=== PATIENT | male | born 1995 | race Caucasian/White ===

== ENCOUNTER 2016-08-30 10:37 | Inpatient (IN) | payer BC ==
[~2016-08-30] VITALS: Ht 190.5 cm; Wt 102.5 kg
[~2016-08-30 10:37] MED LIST: CEPHALEXIN500 M1 PO; NEXIUM 40MG40 MG PO; NO HOME MEDICATIONS; NORCO 325 MG-51 TAB PO; PERCOCET 325 MG1 TA2 PO; ZOFRAN ODT4 MG PO
[2016-08-30 11:30] LABS: BASO % 0.5 % (0.0-2.0); EOS # 0.1 (0.0-0.7); EOS % 0.7 % (0-4.0); GRAN # 5.5 (1.4-6.5); GRAN % 65.8 % (42.2-75.2); HEMATOCRIT 44.7 % (42.0-52.0); HEMOGLOBIN 15.5 g/dl (13.5-18.0); LYMPH # 2.1 (1.2-3.4); LYMPH % 25.7 % (20.0-51.0); MEAN CELL VOLUME 85 fl (80.0-100.0); MEAN CORPUSCULAR HEMOGLOBIN 30 pg (27.0-31.0); MEAN CORPUSCULAR HGB CONC 35 g/dl (33.0-37.0); MEAN PLATELET VOLUME 9.4 fl (7.4-10.4); MONO # 0.6 (0.1-0.6); MONO % 7.2 % (1.7-9.3); PLATELET COUNT 216 K/mm3 (130-400); RED BLOOD COUNT 5.24 M/mm3 (4.20-5.60); REDCELL DISTRIBUTION WIDTH-CV 12.1 % (11.5-14.5); WHITE BLOOD COUNT 8.3 K/mm3 (4.8-10.8)
[2016-08-30 11:35] LABS: PH 5 (5-8); SQUAMOUS EPITHELIAL None Seen /hpf; URINE APPEARANCE Clear; URINE BACTERIA None Seen /hpf; URINE BILIRUBIN Negative (NEGATIVE); URINE BLOOD Negative (NEGATIVE); URINE COLOR Yellow; URINE GLUCOSE Negative (NEGATIVE); URINE KETONE Negative (NEGATIVE); URINE RBC 0-2 /hpf; URINE UROBILINOGEN Negative (NEGATIVE); URINE WBC 0-2 /hpf
[2016-08-30 11:41] LABS: ADJUSTED CALCIUM 9.2 mg/dL (8.4-10.2); ALANINE AMINOTRANSFERASE 53 U/L (21-72); ALBUMIN 4.3 gm/dL (3.5-5.0); ALKALINE PHOSPHATASE 43 U/L (50-136); ANION GAP 11 mmol/L (7-16); BILIRUBIN,TOTAL 1.1 mg/dL (0.0-1.0); BLOOD UREA NITROGEN 15 mg/dL (9-20); CALCIUM 9.4 mg/dL (8.4-10.2); CARBON DIOXIDE 27 mmol/L (22-30); CHLORIDE 102 mmol/L (98-107); GLUCOSE 88 mg/dL (74-106); SODIUM 139 mmol/L (137-145); TOTAL PROTEIN 7.2 gm/dL (6.4-8.2)
[2016-08-30 12:33] LABS: LIPASE 12774 U/L (23-300)
[2016-08-30 13:38] VITALS: BP 117/71; PULSE 54; TEMP 97.1
[2016-08-30 17:35] VITALS: BP 121/62; PULSE 64; TEMP 98.2
[2016-08-30 20:11] VITALS: BP 129/67; PULSE 81; TEMP 98.5
[2016-08-31 01:50] VITALS: BP 116/56; PULSE 69; TEMP 98.4
[2016-08-31 05:05] VITALS: BP 113/52; PULSE 64; TEMP 98.6
[2016-08-31 09:00] VITALS: BP 121/68; PULSE 80; TEMP 98.2
[2016-08-31 10:32] LABS: CALCIUM 9.1 mg/dL (8.4-10.2); CREATININE, serum 0.92 mg/dL (0.66-1.25)
== END 2016-08-31 15:00 | disposition home or self-care (01) | DRG 440 ==
LOC: COL.ER 10:37 → SURG 12:51
PROVIDERS: Nurse Practitioner; Nurse Practitioner Family
DX: K85.90 Acute pancreatitis without necrosis or infection, unspecified (principal); K86.1 Other chronic pancreatitis
CPT/HCPCS: 99222-AI; 99238; J1170; J2270; J2405; J3010; J7030

== ENCOUNTER → 2016-10-11 | Outpatient (CLI) | payer BC | LOC: COL.RAD 07:16 | DX: K86.89 Other specified diseases of pancreas (principal) | CPT/HCPCS: A9585 ==

== ENCOUNTER 2016-12-20 06:55 | Inpatient (IN) | payer BC ==
[~2016-12-20] VITALS: Ht 190.5 cm; Wt 115.7 kg
[2016-12-20 07:28] LABS: BASO % 0.4 % (0.0-2.0); EOS # 0.1 (0.0-0.7); EOS % 0.7 % (0-4.0); GRAN # 7.2 (1.4-6.5); GRAN % 73.6 % (42.2-75.2); HEMATOCRIT 48.6 % (42.0-52.0); HEMOGLOBIN 16.7 g/dl (13.5-18.0); LYMPH # 1.7 (1.2-3.4); MEAN CELL VOLUME 85 fl (80.0-100.0); MEAN CORPUSCULAR HEMOGLOBIN 29 pg (27.0-31.0); MEAN CORPUSCULAR HGB CONC 34 g/dl (33.0-37.0); MEAN PLATELET VOLUME 9.3 fl (7.4-10.4); MONO # 0.8 (0.1-0.6); MONO % 8.1 % (1.7-9.3); PLATELET COUNT 223 K/mm3 (130-400); RED BLOOD COUNT 5.71 M/mm3 (4.20-5.60); REDCELL DISTRIBUTION WIDTH-CV 12.2 % (11.5-14.5); WHITE BLOOD COUNT 9.7 K/mm3 (4.8-10.8)
[2016-12-20 07:45] LABS: ADJUSTED CALCIUM 9.1 mg/dL (8.4-10.2); ALBUMIN 4.5 gm/dL (3.5-5.0); BILIRUBIN,TOTAL 0.6 mg/dL (0.0-1.0); C-REACTIVE PROTEIN 0.6 mg/dL (0.0-0.9); CALCIUM 9.5 mg/dL (8.4-10.2); CREATININE, serum 0.88 mg/dL (0.66-1.25); POTASSIUM 4.5 mmol/L (3.4-5.0); TOTAL PROTEIN 7.4 gm/dL (6.4-8.2)
[2016-12-20 08:03] LABS: PH 5 (5-8); SQUAMOUS EPITHELIAL 0-2 /hpf; URINE APPEARANCE Clear; URINE BACTERIA None Seen /hpf; URINE BILIRUBIN Negative (NEGATIVE); URINE BLOOD Negative (NEGATIVE); URINE COLOR Yellow; URINE GLUCOSE Negative (NEGATIVE); URINE KETONE Negative (NEGATIVE); URINE RBC 0-2 /hpf; URINE UROBILINOGEN Negative (NEGATIVE); URINE WBC 0-2 /hpf
[2016-12-20 10:50] VITALS: BP 135/75; PULSE 55; TEMP 98.8
[2016-12-20 11:13] VITALS: BP 125/72; PULSE 55; TEMP 98.1
[2016-12-20 15:26] VITALS: BP 118/64; PULSE 64; TEMP 98.5
[2016-12-20 20:04] VITALS: BP 130/59; PULSE 62; TEMP 98.6
[2016-12-20 23:21] VITALS: BP 113/61; PULSE 51; TEMP 98.7
[2016-12-21 02:16] VITALS: BP 103/58; PULSE 62; TEMP 98.5
[2016-12-21 07:39] VITALS: BP 109/59; PULSE 57; TEMP 98.4
[2016-12-21 07:46] LABS: BASO % 0.5 % (0.0-2.0); EOS # 0.1 (0.0-0.7); EOS % 1.2 % (0-4.0); GRAN # 3.9 (1.4-6.5); HEMATOCRIT 43.5 % (42.0-52.0); HEMOGLOBIN 14.8 g/dl (13.5-18.0); LYMPH # 1.5 (1.2-3.4); LYMPH % 24.3 % (20.0-51.0); MEAN CELL VOLUME 87 fl (80.0-100.0); MEAN CORPUSCULAR HEMOGLOBIN 30 pg (27.0-31.0); MEAN CORPUSCULAR HGB CONC 34 g/dl (33.0-37.0); MEAN PLATELET VOLUME 9.5 fl (7.4-10.4); MONO # 0.5 (0.1-0.6); MONO % 8.7 % (1.7-9.3); PLATELET COUNT 194 K/mm3 (130-400); RED BLOOD COUNT 5.01 M/mm3 (4.20-5.60); REDCELL DISTRIBUTION WIDTH-CV 12.1 % (11.5-14.5)
[2016-12-21 07:59] LABS: CALCIUM 8.9 mg/dL (8.4-10.2); CREATININE, serum 0.91 mg/dL (0.66-1.25)
[2016-12-21 11:13] VITALS: BP 105/61; PULSE 59; TEMP 98.4
[2016-12-21 16:28] VITALS: BP 115/63; PULSE 60; TEMP 98.1
[2016-12-21 19:48] VITALS: BP 119/61; PULSE 62; TEMP 98.2
[2016-12-21 23:28] VITALS: BP 119/66; PULSE 52; TEMP 98
[2016-12-22 03:46] VITALS: BP 104/66; PULSE 59; TEMP 97.7
[2016-12-22 07:45] VITALS: BP 117/71; PULSE 52; TEMP 98.4
[2016-12-22 12:03] VITALS: BP 123/67; PULSE 53; TEMP 98.5
[2016-12-22 15:07] VITALS: BP 104/53; PULSE 57; TEMP 98.4
[2016-12-22 20:10] VITALS: BP 121/74; PULSE 62; TEMP 98
[2016-12-23 00:48] VITALS: BP 107/60; PULSE 56; TEMP 97.8
[2016-12-23 04:32] VITALS: BP 109/59; PULSE 46; TEMP 97.5
[2016-12-23] MEDS ORDERED: NORCO 325 MG-51 TAB PO (08:01)
[2016-12-23 08:05] VITALS: BP 121/66; PULSE 47; TEMP 98.4
== END 2016-12-23 09:31 | disposition home or self-care (01) | DRG 439 ==
LOC: COL.ER 06:55 → MEDICAL 08:50
PROVIDERS: Nurse Practitioner; Physician Assistant
DX: K85.90 Acute pancreatitis without necrosis or infection, unspecified (principal); E87.1 Hypo-osmolality and hyponatremia; K86.1 Other chronic pancreatitis
CPT/HCPCS: 99222-AI; 99231-AI; 99233-AI; 99239; J1170; J1650; J2405; J7030

== ENCOUNTER 2017-03-24 09:03 | Inpatient (IN) | payer BC ==
[~2017-03-24] VITALS: Ht 190.5 cm; Wt 117.9 kg
[2017-03-24 09:35] LABS: BASO % 0.4 % (0.0-2.0); EOS # 0.1 (0.0-0.7); EOS % 0.6 % (0-4.0); GRAN # 7.4 (1.4-6.5); GRAN % 74.9 % (42.2-75.2); HEMATOCRIT 47.9 % (42.0-52.0); HEMOGLOBIN 16.8 g/dl (13.5-18.0); LYMPH # 1.7 (1.2-3.4); LYMPH % 16.9 % (20.0-51.0); MEAN CELL VOLUME 85 fl (80.0-100.0); MEAN CORPUSCULAR HEMOGLOBIN 30 pg (27.0-31.0); MEAN CORPUSCULAR HGB CONC 35 g/dl (33.0-37.0); MEAN PLATELET VOLUME 9.1 fl (7.4-10.4); MONO # 0.7 (0.1-0.6); MONO % 7.1 % (1.7-9.3); PLATELET COUNT 235 K/mm3 (130-400); RED BLOOD COUNT 5.66 M/mm3 (4.20-5.60); REDCELL DISTRIBUTION WIDTH-CV 12.2 % (11.5-14.5); WHITE BLOOD COUNT 9.9 K/mm3 (4.8-10.8)
[2017-03-24 09:57] LABS: ADJUSTED CALCIUM 9.1 mg/dL (8.4-10.2); ALANINE AMINOTRANSFERASE 40 U/L (21-72); ALBUMIN 4.7 gm/dL (3.5-5.0); ALKALINE PHOSPHATASE 48 U/L (50-136); ANION GAP 11 mmol/L (7-16); BILIRUBIN,TOTAL 1.2 mg/dL (0.0-1.0); BLOOD UREA NITROGEN 16 mg/dL (9-20); C-REACTIVE PROTEIN 0.7 mg/dL (0.0-0.9); CALCIUM 9.7 mg/dL (8.4-10.2); CARBON DIOXIDE 26 mmol/L (22-30); CHLORIDE 100 mmol/L (98-107); CREATININE, serum 0.99 mg/dL (0.66-1.25); GLUCOSE 124 mg/dL (74-106); SODIUM 138 mmol/L (137-145); TOTAL PROTEIN 7.7 gm/dL (6.4-8.2)
[2017-03-24 10:11] LABS: PH 5 (5-8); SQUAMOUS EPITHELIAL 0-2 /hpf; URINE APPEARANCE Clear; URINE BACTERIA Rare /hpf; URINE BILIRUBIN Negative (NEGATIVE); URINE BLOOD Negative (NEGATIVE); URINE COLOR Amber; URINE GLUCOSE Negative (NEGATIVE); URINE KETONE Negative (NEGATIVE); URINE RBC 0-2 /hpf; URINE UROBILINOGEN >=4.0 mg/dL (NEGATIVE)
[2017-03-24 10:21] LABS: LIPASE 7913 U/L (23-300)
[2017-03-24 13:56] VITALS: BP 125/66; PULSE 65; TEMP 97.9
[2017-03-24 16:00] VITALS: BP 125/66; PULSE 65; TEMP 97.9
[2017-03-24 20:54] VITALS: BP 140/69; PULSE 78; TEMP 98.6
[2017-03-24 23:36] VITALS: BP 116/75; BP 148/82; PULSE 83; PULSE 84; TEMP 98.4
[2017-03-25 02:27] VITALS: BP 141/68; PULSE 86; TEMP 98.3
[2017-03-25 08:02] VITALS: BP 142/77; PULSE 100; TEMP 98.1
[2017-03-25 11:44] VITALS: BP 146/86; PULSE 115; TEMP 98.8
[2017-03-25 16:40] VITALS: BP 143/77; PULSE 108; TEMP 98.4
[2017-03-25 20:27] VITALS: BP 135/83; PULSE 116; TEMP 98.6
[2017-03-26] VITALS (9 sets, daily range): BP systolic 119–146; BP diastolic 59–736; PULSE 103–114; TEMP 98.3–101.8
[2017-03-26 08:03] LABS: LIPASE 2327 U/L (23-300)
[2017-03-26 14:04] LABS: TRIGLYCERIDE 71 mg/dL
[2017-03-27 04:10] VITALS: BP 125/69; PULSE 99; TEMP 98.7
[2017-03-27 08:03] VITALS: BP 116/58; PULSE 99; TEMP 99.1
[2017-03-27 08:07] VITALS: BP 116/58; PULSE 99
[2017-03-27 12:17] VITALS: BP 128/69; PULSE 95; TEMP 99.5
[2017-03-27 15:51] VITALS: BP 124/69; PULSE 90; TEMP 98.9
[2017-03-27 19:42] VITALS: BP 145/74; PULSE 83; TEMP 98.6
[2017-03-28 00:30] VITALS: BP 138/77; PULSE 80; TEMP 98.5
[2017-03-28 07:40] LABS: BASO % 0.3 % (0.0-2.0); EOS # 0.1 (0.0-0.7); EOS % 0.5 % (0-4.0); GRAN # 8.1 (1.4-6.5); GRAN % 79.7 % (42.2-75.2); HEMATOCRIT 39.4 % (42.0-52.0); HEMOGLOBIN 13.6 g/dl (13.5-18.0); LYMPH % 9.4 % (20.0-51.0); MEAN CELL VOLUME 86 fl (80.0-100.0); MEAN CORPUSCULAR HEMOGLOBIN 30 pg (27.0-31.0); MEAN CORPUSCULAR HGB CONC 35 g/dl (33.0-37.0); MEAN PLATELET VOLUME 9.5 fl (7.4-10.4); MONO % 9.7 % (1.7-9.3); PLATELET COUNT 185 K/mm3 (130-400); RED BLOOD COUNT 4.56 M/mm3 (4.20-5.60); REDCELL DISTRIBUTION WIDTH-CV 12.1 % (11.5-14.5); WHITE BLOOD COUNT 10.2 K/mm3 (4.8-10.8)
[2017-03-28 07:53] LABS: CALCIUM 8.6 mg/dL (8.4-10.2); CREATININE, serum 0.68 mg/dL (0.66-1.25); POTASSIUM 3.1 mmol/L (3.4-5.0)
[2017-03-28 09:01] VITALS: BP 142/76; PULSE 75; TEMP 98.7
[2017-03-28 12:50] VITALS: BP 135/84; PULSE 63
[2017-03-28 17:04] VITALS: BP 138/83; PULSE 60; TEMP 99.4
[2017-03-28 20:38] VITALS: BP 147/82; PULSE 81; TEMP 98.6
[2017-03-28 23:22] VITALS: BP 136/65; PULSE 76; TEMP 99.4
[2017-03-29 04:18] VITALS: BP 129/74; PULSE 70; TEMP 98.5
[2017-03-29 07:31] VITALS: BP 141/83; PULSE 60; TEMP 97.6
[2017-03-29 08:47] LABS: CREATININE, serum 0.67 mg/dL (0.66-1.25); POTASSIUM 3.4 mmol/L (3.4-5.0)
[2017-03-29] MEDS ORDERED: ZOFRAN 4MG T4 MG/TAB PO (09:15)
[2017-03-29] MEDS ORDERED: NORCO 325 MG-51 TAB PO (09:15)
== END 2017-03-29 09:45 | disposition home or self-care (01) | DRG 440 ==
LOC: COL.ER 09:03 → MEDICAL 10:52
PROVIDERS: Emergency Medicine; Physician Assistant
DX: K85.90 Acute pancreatitis without necrosis or infection, unspecified (principal); K86.1 Other chronic pancreatitis; E87.6 Hypokalemia; R55 Syncope and collapse
CPT/HCPCS: 99223-AI; 99231-AI; 99232-AI; 99233-AI; 99239; J1170; J1650; J2405; J7030

== ENCOUNTER 2019-05-29 09:35 | Observation (INO) | payer BC ==
[~2019-05-29] VITALS: Ht 190.5 cm; Wt 147.9 kg
[~2019-05-29 09:35] MED LIST changes: +ZOFRAN 4MG T4 MG/TAB PO
[2019-05-29 10:29] LABS: BASO % 0.3 % (0.0-2.0); EOS % 0.2 % (0-4.0); GRAN # 9.6 (1.4-6.5); GRAN % 80.8 % (42.2-75.2); HEMATOCRIT 46.8 % (42.0-52.0); HEMOGLOBIN 15.7 g/dl (13.5-18.0); LYMPH # 1.2 (1.2-3.4); LYMPH % 10.1 % (20.0-51.0); MEAN CELL VOLUME 85 fl (80.0-100.0); MEAN CORPUSCULAR HEMOGLOBIN 29 pg (27.0-31.0); MEAN CORPUSCULAR HGB CONC 34 g/dl (33.0-37.0); MEAN PLATELET VOLUME 9.3 fl (7.4-10.4); MONO % 8.3 % (1.7-9.3); PLATELET COUNT 284 K/mm3 (130-400); REDCELL DISTRIBUTION WIDTH-CV 12.6 % (11.5-14.5)
[2019-05-29 10:56] LABS: ALBUMIN 4.3 gm/dL (3.5-5.0); BILIRUBIN,TOTAL 0.3 mg/dL (0.0-1.0); C-REACTIVE PROTEIN 1.2 mg/dL (0.0-0.9); CALCIUM 9.8 mg/dL (8.4-10.2); CREATININE, serum 0.88 (0.66-1.25); POTASSIUM 4.9 mmol/L (3.4-5.0); TOTAL PROTEIN 7.1 gm/dL (6.4-8.2)
[2019-05-29 12:07] LABS: COLLECTION METHOD CLEAN CATCH
[2019-05-29 12:13] LABS: MUCOUS Present /lpf; PH 7 (5-8); SQUAMOUS EPITHELIAL 0-2 /hpf; URINE APPEARANCE Clear; URINE BACTERIA None Seen /hpf; URINE BILIRUBIN Negative (NEGATIVE); URINE BLOOD Negative (NEGATIVE); URINE COLOR Yellow; URINE GLUCOSE Negative (NEGATIVE); URINE KETONE Negative (NEGATIVE); URINE LEUKOCYTE ESTERASE Negative (NEGATIVE); URINE NITRATE Negative (NEGATIVE); URINE PROTEIN(semi-quant) Negative (NEGATIVE); URINE RBC 0-2 /hpf; URINE UROBILINOGEN Negative (NEGATIVE)
--- NOTE | 2019-05-29 13:00 | NUR ---
Patient up from ER. Oriented to room, states pain 8/10 to RUQ.
--- NOTE | 2019-05-29 13:10 | NUR ---
Contacted Brandee PONCE to verify medication orders. New order for dilaudid entered.
[2019-05-29 13:55] VITALS: BP 126/71; PULSE 59; TEMP 98.2
--- NOTE | 2019-05-29 17:59 | NUR ---
Patient has done well throughout the day, Independent in room. Has requested pain medication for pain 8/10 to abdomen throughout the day, medication given per orders. Denies further needs at this time. Will report off to advanced manufacturing technician.
--- NOTE | 2019-05-29 19:30 | NUR ---
Pt. sitting up in bed watching TV at this time. Pt. is A&OX3, assessment complete. INT to lt. ac patent, IV fluids infusing per orders. Pt. reports pain at a 6 on pain scale, gave pain meds per orders. Pt. denies further needs, call light within reach.
[2019-05-29 19:36] VITALS: BP 129/74; PULSE 76; TEMP 98.6
[2019-05-29 23:57] VITALS: BP 109/55; PULSE 55; TEMP 97.6
[2019-05-30 04:34] VITALS: BP 112/63; PULSE 65; TEMP 98.2
[2019-05-30 06:23] LABS: BASO % 0.4 % (0.0-2.0); EOS # 0.1 (0.0-0.7); EOS % 0.8 % (0-4.0); GRAN # 5.7 (1.4-6.5); GRAN % 71.3 % (42.2-75.2); HEMATOCRIT 42.6 % (42.0-52.0); LYMPH # 1.5 (1.2-3.4); LYMPH % 18.5 % (20.0-51.0); MEAN CELL VOLUME 86 fl (80.0-100.0); MEAN CORPUSCULAR HEMOGLOBIN 28 pg (27.0-31.0); MEAN CORPUSCULAR HGB CONC 33 g/dl (33.0-37.0); MEAN PLATELET VOLUME 9.3 fl (7.4-10.4); MONO # 0.7 (0.1-0.6); MONO % 8.7 % (1.7-9.3); PLATELET COUNT 247 K/mm3 (130-400); RED BLOOD COUNT 4.93 M/mm3 (4.20-5.60)
[2019-05-30 06:44] LABS: ALBUMIN 3.7 gm/dL (3.5-5.0); BILIRUBIN,TOTAL 0.6 mg/dL (0.0-1.0); CALCIUM 8.7 mg/dL (8.4-10.2); CHOLESTEROL RISK RATIO 5.5; CREATININE, serum 0.92 (0.66-1.25); POTASSIUM 4.2 mmol/L (3.4-5.0); TOTAL PROTEIN 6.4 gm/dL (6.4-8.2)
[2019-05-30 07:57] VITALS: BP 121/60; PULSE 58; TEMP 97.4
--- NOTE | 2019-05-30 08:00 | NUR ---
Patient resting in bed at this time. Patient is alert and oriented, answers questions appropriately. Patient states pain is controlled at this time, denies nausea/vomiting. Patient denies further needs, call light within reach.
--- NOTE | 2019-05-30 10:54 | NUR ---
Visited, listened, and provided spiritual care.
[2019-05-30 12:07] VITALS: BP 138/70; PULSE 80; TEMP 97.8
[2019-05-30] MEDS ORDERED: NORCO 325 MG-51 TAB PO (15:42)
[2019-05-30] MEDS ORDERED: ZOFRAN 4MG T4 MG/TAB PO (15:42)
[2019-05-30 16:05] VITALS: BP 138/84; PULSE 83; TEMP 97.9
--- NOTE | 2019-05-30 16:24 | NUR ---
Discharge teaching completed. IV removed, catheter intact, hemostasis achieved. Discussed importance of making and keeping follow up appointments, discussed medications and OTC stool softners. Patient denies questions or needs at this time. Patient confirms belongings gathered, escorted to visitor entrance.
== END 2019-05-30 16:35 | disposition home or self-care (01) ==
LOC: COL.ER 09:35 → SURG 12:02
PROVIDERS: Physician Assistant; ADMIT Family Medicine
DX: K85.90 Acute pancreatitis without necrosis or infection, unspecified (principal)
CPT/HCPCS: G0378; J1170; J1650; J2405; J7030; Q9967